=== PATIENT | female | born 1945 | race Caucasian/White ===

== ENCOUNTER 2017-03-31 10:37 | Outpatient (CLI) | payer OTHER | END 2017-03-31 19:34 | disposition home or self-care (01) | LOC: SMA 10:37 | PROVIDERS: ATTEND Family Medicine | DX: Z12.31 Encounter for screening mammogram for malignant neoplasm of breast (principal) | CPT/HCPCS: G0202 ==

== ENCOUNTER 2017-06-16 08:30 | Outpatient (CLI) | payer OTHER | END 2017-06-16 19:58 | disposition home or self-care (01) | LOC: SRD 08:30 | PROVIDERS: ATTEND Family Medicine | DX: S16.1XXD Strain of muscle, fascia and tendon at neck level, subsequent encounter (principal); X58.XXXD Exposure to other specified factors, subsequent encounter | CPT/HCPCS: 72050-TC; 73030 ==

== ENCOUNTER 2019-04-09 15:15 | Outpatient (CLI) | payer OTHER | END 2019-04-09 20:05 | disposition home or self-care (01) | LOC: SMA 15:15 | PROVIDERS: ATTEND Family Medicine | DX: Z12.31 Encounter for screening mammogram for malignant neoplasm of breast (principal) | CPT/HCPCS: 77067 ==